=== PATIENT | female | born 1950 | race Caucasian/White ===

== ENCOUNTER 2017-04-07 05:14 | Inpatient (IN) | payer OTHER ==
[2017-03-26 13:50] LABS: URINE BILIRUBIN NEGATIVE (Negative); URINE BLOOD NEGATIVE (Negative); URINE CLARITY CLEAR; URINE COLOR YELLOW; URINE GLUCOSE-RANDOM* NEGATIVE (Negative); URINE KETONES NEGATIVE (Negative); URINE LEUKOCYTES-REFLEX NEGATIVE (Negative); URINE NITRITE-REFLEX NEGATIVE (Negative); URINE PROTEIN (DIPSTICK) NEGATIVE (Negative); URINE UROBILINOGEN 0.2 E.U./dl (0.2-1.0)
[2017-03-26 13:54] LABS: HEMOGLOBIN 14.7 gm/dL (12.0-15.0); MCH 29.9 pg (26.0-34.0); MCHC 33.3 g/dL (28.0-37.0); MCV 89.6 fL (80.0-100.0); RBC 4.91 mil/uL (4.20-5.00); RDW 13.1 % (10.5-14.5); WBC 5.5 thou/uL (4.0-11.0)
[2017-03-26 14:17] LABS: ALBUMIN 3.9 g/dL (3.4-5.0); CALCIUM 9.8 mg/dL (8.5-10.1); CREATININE 1.1 mg/dL (0.6-1.0); POTASSIUM 3.8 mmol/L (3.5-5.1); TOTAL BILIRUBIN 0.4 mg/dL (<0.1-1.0); TOTAL PROTEIN 6.8 g/dL (6.4-8.2)
[~2017-04-07] VITALS: Ht 154.9 cm; Wt 75.7 kg
[2017-04-07] VITALS (8 sets, daily range): BP systolic 102–126; BP diastolic 49–77
--- NOTE | ~2017-04-07 | O ---
[facility] [place] [address] OPERATIVE REPORT Name: SONIA ROSE Room #: 404-P [facility] IN M.R.#: [id number] Admission: 04/07/17 Attend Phys: Jony William MD Discharge: Date of : 52 Report #: [id number] THIS REPORT FOR: //name// CC: Jony William Dana Iglesiasick DATE OF SERVICE: 04/07/2017 PREOPERATIVE DIAGNOSIS: End-stage degenerative arthritis, right knee. POSTOPERATIVE DIAGNOSIS: End-stage degenerative arthritis, right knee. PROCEDURE: Right total knee arthroplasty. SURGEON: Jony William MD INDICATIONS: This fit, active 66-year-old female presents with progressive bilateral knee pain, somewhat worse on the right than the left. Clinical and radiographic evaluation confirm rather significant degenerative arthritis, but with satisfactory alignment and only mild decrease in range of motion, she has elected to go ahead with total knee arthroplasty. DESCRIPTION OF PROCEDURE: The patient was taken to the operating room where she was placed under general anesthesia. Prophylactic intravenous antibiotics were administered. The right knee and leg were meticulously prepped and draped and a thigh tourniquet applied and inflated to 300 mmHg. An anterior longitudinal skin incision was made and carried through the medial retinaculum. The patella was reflected laterally. Moderate degenerative change in all 3 compartments was noted. The Vanegas and Nephew knee system was utilized. Intramedullary guides were used on both the femur and the tibia. The femur was best suited for a size 4 Legion cruciate retaining femoral component. The tibia surface was resected and the tibia seemed best suited for a size 3 Tessa tibial baseplate. The patellar surface was resected and a size 32-mm patellar button fit nicely. The appropriate anchor holes were created, a trial reduction was performed and the knee was best suited for a 10-mm polyethylene insert, this resulted in full knee extension and flexion beyond 130 degrees with good stability in varus and valgus stress. The trial components were removed. The surfaces were thoroughly irrigated and dried. The intramedullary canal was blocked with a bone block on both the femoral and tibial sides. Methyl methacrylate cement was mixed and injected into the porous surface of the proximal tibia. The Vanegas and Nephew size 3 Tessa II right tibial baseplate was then inserted, positioning this appropriately. Excess cement was removed around its margin. A 10-mm Flybits polyethylene liner was then inserted and snapped into place, it seated nicely and appeared to be secure. The right size 4 cruciate retaining Legion femoral [address] [address] OPERATIVE REPORT Name: SONIA ROSE Room #: 404-P [facility] IN .R.#: [id number] Admission: 04/07/17 Attend Phys: Jony William MD Discharge: Date of : 52 Report #: [id number] component was then inserted, it was impacted into position and seated nicely and appeared to be secure. A 32-mm Tessa II patellar button was cemented into place and seated nicely. A patellar clamp was used until the cement had fully hardened. Alignment, range of motion and stability were once again assessed and felt to be satisfactory. A single Hemovac was placed exiting through a lateral stab incision. The tourniquet was then deflated after a total tourniquet time of 59 minutes. Good hemostasis was confirmed. The fascia was closed with multiple #1 Vicryl sutures. The subcutaneous tissues were closed with 0 Monocryl. The skin was closed with skin drew. A sterile dressing was applied. The patient was then awakened and returned to recovery room in good condition. <ELECTRONICALLY SIGNED> By: Jony William MD 04/08/17 0756 [id number] Jony William MD /nt
--- NOTE | ~2017-04-07 | D ---
[facility] [place] [address] DISCHARGE SUMMARY Name: SONIA ROSE Room #: 404-P [facility] IN M.R.#: [id number] Admission: 04/07/17 Attend Phys: Jony William MD Discharge: 04/10/17 Date of : 52 Report #: [id number] THIS REPORT FOR: //name// CC: Jony Venegas DATE OF SERVICE: 04/10/2017 FINAL DIAGNOSIS: End-stage degenerative arthritis, right knee. OPERATIONS AND PROCEDURES: Right total knee arthroplasty. HISTORY OF PRESENT ILLNESS: This generally healthy, fit 66-year-old female presents with progressive bilateral knee pain. Symptoms are worse on the right side. Clinical and radiographic findings are consistent with moderately severe degenerative arthritis. We have discussed treatment options and elected to go ahead with right total knee arthroplasty. HOSPITAL COURSE: The patient was admitted and taken to the operating room on 04/07/2017. She underwent right total knee arthroplasty which she tolerated well. She was able to advance from IV analgesics to oral analgesics and resume a regular diet without much difficulty. She started physical therapy and made slow progress with some limitations due to discomfort. She seems now to be safe and independent and ready for discharge. DISCHARGE MEDICATIONS: Include acyclovir 400 mg b.i.d., Maxzide 75/50 one q. day, Effexor 37.5 mg b.i.d., Flexeril 10 mg t.i.d. p.r.n., Lipitor 20 mg q. day, tramadol 50 mg q. 6 hours p.r.n. mild pain, hydrocodone 10 mg q. 6 hours p.r.n. severe pain, Zantac 150 mg at bedtime p.r.n., Xarelto 10 mg daily. She will continue a gentle independent exercise program and gradually advanced to outpatient therapy as symptoms allow. I have asked her to call me should there are any problems or questions and follow up in the office in about 2 weeks for wound inspection and suture removal. <ELECTRONICALLY SIGNED> By: Jony William MD 04/12/17 1304 [id number] Jony William MD /nt
[~2017-04-07 05:14] MED LIST: ACYCLOVIR 400400 MG PO; BIOTIN 800 MCG1 EACH PO; FLEXERIL PO; GUMMI BEAR MUL1 EAC1 PO; LIPITOR20 MG PO; MAXZIDE 75-501 EACH PO; MOBIC15 MG PO; STRESS B-COMPL1 EACH PO; TRAMADOL 50 MG50 MG PO; VENLAFAXIN37.5 MG/1 PO; VITAMIN B-6100 MG PO; ZANTAC 150MG T150 MG PO; [UNRECOGNIZED DRUG - OTHER] PO
[2017-04-08 03:30] VITALS: BP 117/68
[2017-04-08 04:33] LABS: HEMOGLOBIN 11.9 gm/dL (12.0-15.0); MCH 30.2 pg (26.0-34.0); MCV 88.9 fL (80.0-100.0); RBC 3.94 mil/uL (4.20-5.00); RDW 12.8 % (10.5-14.5); WBC 12.4 thou/uL (4.0-11.0)
[2017-04-08 08:00] VITALS: BP 131/66
[2017-04-08] MEDS ORDERED: NIGHTTIME SLEEP25 M1 (09:42)
[2017-04-08 16:45] VITALS: BP 136/59
[2017-04-08 20:00] VITALS: BP 149/60
[2017-04-09 04:00] VITALS: BP 117/58
[2017-04-09 04:53] LABS: HEMOGLOBIN 11.2 gm/dL (12.0-15.0); MCH 30.5 pg (26.0-34.0); MCHC 34.1 g/dL (28.0-37.0); MCV 89.3 fL (80.0-100.0); RBC 3.69 mil/uL (4.20-5.00); WBC 9.8 thou/uL (4.0-11.0)
[2017-04-09 09:29] VITALS: BP 137/54
[2017-04-09 17:23] VITALS: BP 107/54
[2017-04-09 20:00] VITALS: BP 133/64
[2017-04-10] VITALS: BP 106/55
[2017-04-10 04:00] VITALS: BP 126/66
[2017-04-10 05:14] LABS: HEMATOCRIT 30.5 % (37.0-47.0); HEMOGLOBIN 10.3 gm/dL (12.0-15.0); MCH 30.2 pg (26.0-34.0); MCHC 33.8 g/dL (28.0-37.0); MCV 89.2 fL (80.0-100.0); RBC 3.42 mil/uL (4.20-5.00)
[2017-04-10 09:36] VITALS: BP 106/52
[2017-04-10 10:08] VITALS: BP 106/52
== END 2017-04-10 12:10 | disposition home or self-care (01) | DRG 470 ==
LOC: 4N 05:14 → TBA 05:14 → PRE 05:30 → 4N 10:38 → PRE 13:07 → ENTRNSPT 04-10 12:02 → 4N 04-10 12:10
PROVIDERS: Orthopaedic Surgery
PROC: 0SRC0J9 Replacement of Right Knee Joint with Synthetic Substitute, Cemented, Open Approach (ICD-10-PCS; principal; 2017-04-07)
DX: M17.11 Unilateral primary osteoarthritis, right knee (principal); E78.00 Pure hypercholesterolemia, unspecified; K21.9 Gastro-esophageal reflux disease without esophagitis; F41.9 Anxiety disorder, unspecified; B19.20 Unspecified viral hepatitis C without hepatic coma; Z88.8 Allergy status to other drugs, medicaments and biological substances; Z79.899 Other long term (current) drug therapy; Z90.49 Acquired absence of other specified parts of digestive tract
CPT/HCPCS: 10790; 50010; 50101; 50415; 50954; 51130; 51225; 51412; 51771; 53364; 56525; 62110; 62900; 64042; 70005

== ENCOUNTER 2018-04-27 05:29 | Inpatient (IN) | payer OTHER ==
[2018-04-16 15:14] LABS: HEMATOCRIT 42.9 % (37.0-47.0); HEMOGLOBIN 14.8 gm/dL (12.0-15.0); MCH 31.2 pg (26.0-34.0); MCHC 34.4 g/dL (28.0-37.0); MCV 90.6 fL (80.0-100.0); RBC 4.74 mil/uL (4.20-5.00); RDW 13.4 % (10.5-14.5); WBC 6.2 thou/uL (4.0-11.0)
[2018-04-16 15:18] LABS: ALBUMIN 4.2 g/dL (3.4-5.0); CALCIUM 9.4 mg/dL (8.5-10.1); CREATININE 1.3 mg/dL (0.6-1.0); POTASSIUM 4.6 mmol/L (3.5-5.1)
[2018-04-16 15:20] LABS: ICTOTEST (BILI CONFIRMATORY) Negative (Negative); URINE BILIRUBIN NEGATIVE (Negative); URINE BLOOD NEGATIVE (Negative); URINE CLARITY CLEAR; URINE COLOR YELLOW; URINE GLUCOSE-RANDOM* NEGATIVE (Negative); URINE KETONES TRACE (Negative); URINE LEUKOCYTES-REFLEX NEGATIVE (Negative); URINE NITRITE-REFLEX NEGATIVE (Negative); URINE PROTEIN (DIPSTICK) NEGATIVE (Negative); URINE UROBILINOGEN 0.2 E.U./dl (0.2-1.0)
[2018-04-16 15:29] LABS: PROTIME 10.2 Seconds (9.3-11.4)
[~2018-04-27] VITALS: Ht 151 cm; Wt 24.0 kg
[~2018-04-27 05:29] MED LIST changes: +LIPITOR 20 MG T20 M1 PO; +NIGHTTIME SLEEP25 M1 PO; +TYLENOL325 MG PO
[2018-04-27 06:38] VITALS: BP 128/69
--- NOTE | 2018-04-27 14:18 | NUR ---
MISSILE TRACKING TECHNICIAN PUMP STARTED AT THIS TIME.
--- NOTE | 2018-04-27 14:19 | NUR ---
ASSESSMENT-PT LIVES AT HOME WITH HER . PT HAD SURGERY ON HER RIGHT KNEE 1 YR AGO. PT HAS A FWW FROM THEN THAT SHE CAN USE. PT PLANS TO GO TO [facility] ON [address] IN [place]. SHE IS ASKING ABOUT TRANSPORTATION TO [facility] [place] [facility] [place] [phone], EXT [phone] AND THEY RUN -W- FROM 10AM -2PM AND COST IS $1.[address]. PT WILL CALL TO SCHEDULE WITH THEM FOR HER THERAPY APPTS. NO OTHER DC NEEDS AT THIS TIME.
[2018-04-27 19:27] VITALS: BP 104/55
--- NOTE | 2018-04-28 03:12 | NUR ---
ASSUMED CARE 0. VSS. ASSESSMENT CHARTED. PT C/O BI LAT KNEE PAIN, CONTROLED WITH EDGING CATCHER, SEE EDGING CATCHER INTERVENTIONS AND EMAR. PICCO AND HEMOVAC IN PLACE. BILAT LE DRESSINGS CDI. PT USING BEDPAN WELL. PLAN FOR LABS THIS AM. WILL CONTINUE TO MONITOR AND WITH POC.
[2018-04-28 04:12] LABS: HEMATOCRIT 32.7 % (37.0-47.0); HEMOGLOBIN 11.5 gm/dL (12.0-15.0); MCH 31.4 pg (26.0-34.0); MCV 89.8 fL (80.0-100.0); RBC 3.65 mil/uL (4.20-5.00); RDW 13.1 % (10.5-14.5); WBC 7.6 thou/uL (4.0-11.0)
[2018-04-28 04:46] VITALS: BP 120/56
[2018-04-28 07:54] VITALS: BP 111/52
--- NOTE | 2018-04-28 08:07 | O ---
[facility] [place] [address] OPERATIVE REPORT Name: SONIA ROSE Room #: 429-P [facility] IN M.R.#: [id number] Admission: 04/27/18 Attend Phys: oJny William MD Discharge: Date of : 52 Report #: [id number] THIS REPORT FOR: //name// CC: Jony William Dana Iglesiasick DATE OF SERVICE: 04/27/2018 PREOPERATIVE DIAGNOSIS: End-stage degenerative osteoarthritis, left knee. POSTOPERATIVE DIAGNOSIS: End-stage degenerative osteoarthritis, left knee. PROCEDURE: Left total knee arthroplasty. SURGEON: Jony William MD INDICATIONS: This active 67-year-old female has complained of progressive bilateral knee pain. She underwent right total knee arthroplasty one year ago with good result. She now has progressive symptoms on the left side and is anxious to proceed with total knee replacement. She also notes a small skin lesion at the right knee and has requested surgical excision today during the same anesthetic. DESCRIPTION OF PROCEDURE: The patient was taken to the operating room where she was placed under general anesthesia. Prophylactic intravenous antibiotics were administered. The left knee and leg were meticulously prepped and draped. A thigh tourniquet was applied and inflated to 300 mmHg. An anterior longitudinal skin incision was made and carried through the medial retinaculum. The patella was reflected laterally. Marked degenerative change in all 3 compartments was noted. The Vanegas and Nephew knee system was utilized. Intramedullary guides were used on both the femur and the tibia. The femur was cut in 5 degrees of valgus and the tibia was cut perpendicular to the long axis of the bone correcting the moderate preoperative varus malalignment. The femur seemed best suited for a size 4 femoral component. The tibia was best suited for a size 3 tibial component. A 10 mm polyethylene trial insert fit nicely and resulted in full knee extension and flexion beyond 130 degrees with good stability. The patellar surface was resected and a 32 mm patellar button fit nicely. The patellar tracks well and seems to be stable. The trial components were removed. The surfaces were thoroughly irrigated and dried. The intramedullary canal was blocked with bone block on both the femoral and tibial sides. Methyl methacrylate cement was mixed and injected into the porous surface of the tibia. The Vanegas and Nephew size 3 Tessa II left tibial baseplate was then inserted. This was impacted into position and seated nicely. Excess cement was removed around its margin. The size 10 mm Legion cruciate retaining polyethylene insert was snapped into place. It seated nicely and [facility] [address] [place] [address] OPERATIVE REPORT Name: SONIA ROSE Room #: 429-P [facility].#: [id number] Admission: 04/27/18 Attend Phys: Jony William MD Discharge: Date of : 52 Report #: [id number] appeared to be secure. A size 4 left cruciate retaining Legion femoral component was impacted on the distal femur. A small amount of cement was used in the distal locking holes. Excess cement was removed from around its margin. The femur seated nicely and appeared to be secure. The size 32 mm Tessa II patellar button was inserted and cemented into place using appropriate anchor holes. A cement clamp was used until the cement had hardened. Range of motion, alignment and stability were once again assessed and felt to be satisfactory. The tourniquet was deflated after a total tourniquet time of 52 minutes. Good hemostasis was confirmed. A single Hemovac was left in the wound exiting through a separate stab incision. The fascia was closed with multiple #1 Vicryl sutures. The subcutaneous tissues were closed with 0 Monocryl and the skin was closed with skin drew. A sterile dressing was applied. Attention was then directed to the opposite right knee. A very small and well healed lesion was noted in the upper aspect of her previous surgical incision line. This has occasionally opened slightly with just a bit of serous drainage, suggesting a possible retained scar or suture fragment. This small area is now noninflamed and there is no drainage and appears to be nearly completely healed. Nevertheless, the patient states that it occasionally opens as she tries to pick at the skin and wanted to go ahead with simple excision. A small elliptical incision was made excising this small lesion along with the skin and subcutaneous tissues. The total length of the incision is about 1.5-2 cm. This was closed using 3-0 nylon suture. Sterile dressing was applied. The patient was then awakened and returned to recovery room in good condition. <ELECTRONICALLY SIGNED> By: Jony William MD 04/28/18 0807 [id number] Jony William MD /nt
[2018-04-28 12:00] VITALS: BP 111/62
--- NOTE | 2018-04-28 14:50 | NUR ---
PATIENT WAS PLEASANT ALL DAY. PAIN REMAINED AT A 7 FOR MAJORITY OF DAY EVEN WITH MEDICATION. HAD HOUSING PROJECT MANAGER PUMP AND HEMOVAC DISCONTINUED BEFORE 0900. PATIENT HAD A NASAL SWAB FOR MRSA, RESULTS PENDING. ARRIVED AROUND LUNCHTIME. PHYSICAL THERAPY WORKED WITH HER TWICE WITH GREAT IMPROVEMENT. SHE WILL BE MOVING TO [facility] BEFORE D[facility].
--- NOTE | 2018-04-28 14:56 | NUR ---
I have reviewed and concur with student documentation.
--- NOTE | 2018-04-28 18:24 | NUR ---
PATIENT TRANSFERRED FROM [facility], REPORT RECEIVED FROM VITOR/RN. PATIENT ALERT AND ORIENTED X 4. PATIENT UP WITH ASSIST X 1 WITH WALKER. PATIENT C/O PAIN WITH LEFT KNEE, 10/10, OXYCODONE 1 TABLET GIVEN. MORPHINE 2 MG IV GIVEN FOR PAIN RELIEF. PATIENT UP TO BSC WITH WALKER. WILL CONTINUE TO MONITOR.
[2018-04-28 19:53] VITALS: BP 114/61
[2018-04-28 21:00] VITALS: BP 114/61
--- NOTE | 2018-04-28 22:45 | NUR ---
Assumed pt care at 1900.Pt A/OX4,up with AX1 RW/GB to BR. C/o pain to L knee LOP 8/10 with movement medicated with Morphine 2mg with relief reported at this time. Pt's requested acewrap drsg to be taken off the left knee as the Dr.had stated earlier it can be taken off. Mukund wrap and wool layer taken off and nikki hose reapplied. NADINE drsg in place and patent.Edema noted on LLE,elevated on a pillow and ice packs provided. Pt's O2 sat in the 80's on RA,RT requested to check O2 on pt and still on the 80's. O2 applied per NC and sats up to 91% on 4L/NC.Pt denies SOA,encouraged to keep using the incentive spirometer while awake,pt states she has been forgeting to. Used IS X1O before going to sleep.Resting quietly at this time no distress noted. Call light/personal items within reach.
[2018-04-29 00:40] VITALS: BP 134/77
[2018-04-29 05:29] LABS: HEMATOCRIT 30.9 % (37.0-47.0); HEMOGLOBIN 10.8 gm/dL (12.0-15.0); MCHC 34.8 g/dL (28.0-37.0); MCV 89.1 fL (80.0-100.0); RBC 3.47 mil/uL (4.20-5.00); RDW 12.5 % (10.5-14.5); WBC 9.1 thou/uL (4.0-11.0)
[2018-04-29 05:46] VITALS: BP 124/61
[2018-04-29 08:15] VITALS: BP 108/64
--- NOTE | 2018-04-29 12:15 | NUR ---
Following for d/c planning needs. Reviewed chart and spoke with nurse and pt. Pt is still planning to go to outpatient PT in [place] and has made arrangements for transportation to/from therapy. Will remain available to assist as needed.
--- NOTE | 2018-04-29 14:49 | NUR ---
Nutrition: pt admitted for Left TKR. Seen due to BMI 10.5, weight 52# which is error. Pt reports weight 152# and has had intentional loss of 21# since december. Appetite is fair/good on regular diet. Low risk.
[2018-04-29 18:59] VITALS: BP 136/58
--- NOTE | 2018-04-29 19:22 | NUR ---
[facility]IENT ALERT AND ORIENTED X 4. PATIENT UP WITH ASSIST X 1 WITH WALKER. PATIENT HAS RIGHT FOREARM IV IN PLACE, FLUSHED WITH NS AND REMAINS PATENT. PATIENT PAIN HAS BETTER SLIGHTLY IMPROVED, HYDROCODONE 1 TABLET, OXYCODONE, AND MORPHINE 2MG IV THIS SHIFT. LEFT KNEE NADINE DRESSING IN PLACE, C/D/I. PATIENT WORKED WITH PHYSICAL THERAPY X 2 TIMES THIS SHIFT. PATIENT MAY D/C TO HOME TOMORROW IF PAIN CONTROLLED BY PO MEDS PER DR ALLEN. WILL CONTINUE TO MONITOR.
[2018-04-29 20:45] VITALS: BP 136/58
--- NOTE | 2018-04-30 04:42 | NUR ---
Pt A/OX4. Up with AX1 RW/GB,WBAT to LLE. C/o pain at 5/10,medicated with Hydrocodone with relief reported. VSS.Voiding without problems,BS hypoactive though passing gas Senna PRN given at HS. Edema on LLE decreasing,thigh high nikki hose in place and LLE elevated on a pillow. Call light/personal items within reach. Will continue to monitor pt.
[2018-04-30 06:29] LABS: MCH 30.2 pg (26.0-34.0); MCHC 33.4 g/dL (28.0-37.0); MCV 90.5 fL (80.0-100.0); RBC 3.65 mil/uL (4.20-5.00); WBC 7.4 thou/uL (4.0-11.0)
[2018-04-30 07:50] VITALS: BP 108/51
--- NOTE | 2018-04-30 09:24 | NUR ---
PATIENT CARE WAS ASSUMED AT 0715.PATIENT IS ALERT AND ORIENTED X4.PATIENT HAS NO COMPLAINS AT THIS TIME.PAIN IS BETTER THAN IT WAS YESTERDAY.PT IS ABLE TO GET UP WITH ASSIST X1 WITH WALKER.PATIENT HAS TEDS IN PLACE.PT HAS NOT HAD BM SINCE 2/3, HAS BEEN PASSING GAS.WILL CONTINUE TO GIVE MEDS TO HELP WITH BOWEL MOVEMENT.IV IS INTACT AND SALINE LOCKED.CALL LIGHT, PHONE, AND PERSONAL BELONGINGS ARE WITH REACH.
--- NOTE | 2018-04-30 12:24 | NUR ---
DISCHARGE NOTE: SW reviewed chart and spoke with nursing and attending physician. Pt was transferred to [facility] from and is medically stable for discharge home today. Pt will do outpatient therapy in [place]. SW met with pt at bedside to discuss discharge plan. Pt states she is waiting for ortho to come by to see her regarding her pain medication. Will need a script for pain meds. Pt states her family will provide transportation home. No additional SW needs identified at this time, but is avialable to assist should needs arise.
[2018-04-30 13:53] VITALS: BP 108/51
--- NOTE | 2018-04-30 14:10 | NUR ---
PATIENT WAS DIACHARGED TO GO HOME WITH SELF CARE.PATIENT LEFT IN STABLE CONDITION UPON DISCHARGE.IV WAS TAKEN OUT.PATIENT WAS GIVEN HYDROCODONE 10/325MG SCRIPT WITH EDUCATION ATTACHED.PATIENT STATED THAT SHE WOULD LIKE OTHER MEDICATION INSTEAD FOR PAIN.DOCTOR WAS NOTIFIED BEFORE PATIENT WAS DISCHARGED, AND OFFERED TO WRITE A SCRIPT IF SHE WAS ABLE TO PICK IT UP AT HIS LOCATION AT [place] OR GO TO HIS OTHER OFFICE TO GET A SCRIPT.PT WAS TAKEN OUT TO FAMILY'S CAR VIA W/C BY TRANSPORTATION.
== END 2018-04-30 14:09 | disposition home or self-care (01) | DRG 470 ==
LOC: 4E 05:29 → TBA 05:29 → PRE 06:15 → 4E 11:18 → PRE 11:39 → ENTRNSPT 04-28 15:00 → EDTRNSPTSTS 04-28 15:08 → SICU 04-28 15:27 → ENTRNSPT 04-30 13:57 → EDTRNSPTSTS 04-30 14:00 → SICU 04-30 14:09
PROVIDERS: ADMIT Orthopaedic Surgery
PROC: 0SRD0J9 Replacement of Left Knee Joint with Synthetic Substitute, Cemented, Open Approach (ICD-10-PCS; principal; 2018-04-27)
DX: M17.12 Unilateral primary osteoarthritis, left knee (principal); E78.5 Hyperlipidemia, unspecified; I10 Essential (primary) hypertension; F41.9 Anxiety disorder, unspecified; E78.00 Pure hypercholesterolemia, unspecified; Z79.899 Other long term (current) drug therapy; Z88.8 Allergy status to other drugs, medicaments and biological substances; Z90.49 Acquired absence of other specified parts of digestive tract; Z85.3 Personal history of malignant neoplasm of breast
CPT/HCPCS: 10783; 15002; 50010; 50101; 50415; 50954; 51130; 51225; 51412; 53364; 56525; 56527; 57095; 57104; 57180; 62110; 62900; 64042; 70005